=== PATIENT | female | born 1940 | race Caucasian/White ===

== ENCOUNTER 2018-02-05 09:54 | Outpatient (CLI) | payer OTHER ==
[~2018-02-05 09:54] MED LIST: BARIUM SULFATE 340 ML SUSP.RECON***PROCEDURE AREA ONLY**DONT ENTER PO ONE; SIMETHICONE/SOD BICARB/CIT AC PACKET PO ONE; diatrozoate meglu/diatrozoate sod (37% iodine) 120ML oral solution ONE
== END 2018-02-05 23:59 | disposition home or self-care (01) ==
LOC: RAD 09:54
PROVIDERS: ATTEND Specialist
DX: K57.10 Diverticulosis of small intestine without perforation or abscess without bleeding (principal); K63.89 Other specified diseases of intestine; K21.9 Gastro-esophageal reflux disease without esophagitis
CPT/HCPCS: 74241; Q9963

== ENCOUNTER 2019-01-25 08:03 | Day surgery (SDC) | payer MEDICARE ==
[2019-01-25] VITALS (13 sets, daily range): BP systolic 129–236; BP diastolic 72–126
[~2019-01-25] VITALS: Ht 139.7 cm; Wt 56.0 kg
[2019-01-25] MEDS ORDERED: normal saline 1000ml 1,000 ML IV PRN (08:40)
[2019-01-25] MEDS ORDERED: LORazepam 0.5 MG tablet PO PRN (08:55)
[2019-01-25 09:37] LABS: BASOPHILS # (AUTO) 0.1 X10'3 (0-0.2); BASOPHILS % (AUTO) 0.8 % (0-1); EOSINOPHILS # (AUTO) 0.2 X10'3 (0-0.9); EOSINOPHILS % (AUTO) 2.2 % (0-6); HEMATOCRIT 45.2 % (35.0-45.0); HEMOGLOBIN 15.2 g/dl (12.0-16.0); LYMPHOCYTES % (AUTO) 29.6 % (21-51); MEAN CORPUSCULAR HEMOGLOBIN 29.2 PG (27.0-31.0); MEAN CORPUSCULAR HGB CONC 33.6 g/dL (33.0-36.5); MEAN CORPUSCULAR VOLUME 87.1 FL (78-98); MEAN PLATELET VOLUME 7.5 FL (7.4-10.4); MONOCYTES # (AUTO) 0.6 X10'3 (0-0.9); MONOCYTES % (AUTO) 5.4 % (2-12); NEUTROPHILS # (AUTO) 6.3 X10'3 (1.8-7.7); PLATELET COUNT 392 X10'3 (140-440); RED BLOOD COUNT 5.19 X10'6 (4.20-5.60); RED CELL DISTRIBUTION WIDTH 14.3 % (11.5-14.5); WHITE BLOOD COUNT 10.2 X10'3 (4.5-11.0)
[2019-01-25 09:49] LABS: ALBUMIN 4.1 G/DL (3.4-5.0); ANION GAP 10 (8-16); BLOOD UREA NITROGEN 15 MG/DL (7-18); BUN/CREATININE RATIO 17.4 (6.6-38.0); CALCIUM 10.1 MG/DL (8.5-10.1); CHLORIDE 102 MMOL/L (99-107); CREATININE 0.86 MG/DL (0.40-0.90); GLUCOSE 128 MG/DL (70-104); POTASSIUM 4.1 MMOL/L (3.5-5.1); SODIUM 139 MMOL/L (135-145); TOTAL CARBON DIOXIDE 26.9 MMOL/L (24-32); eGFR 64 ML/MIN
[2019-01-25] MEDS ORDERED: LIDOcaine 1%/PF 5ML 10 MG/ML VIAL ONE (10:21)
[2019-01-25] MEDS ORDERED: midazolam 2 mg/2 ml injection IV PRN (10:25)
[2019-01-25] MEDS ORDERED: LIDOcaine 1%/PF 5ML 10 MG/ML VIAL SQ ONE (10:25)
[2019-01-25] MEDS ORDERED: fentaNYL/PF 50MCG/1 ML 2ML syringe IV PRN (10:25)
[2019-01-25] MEDS ORDERED: midazolam 2 mg/2 ml injection ONE (10:34)
[2019-01-25] MEDS ORDERED: fentaNYL/PF 50MCG/1 ML 2ML syringe ONE ×2 (10:34→10:49)
[2019-01-25] MEDS ORDERED: metoprolol tartrate 1mg/ml inj IV ONE ×2 (10:53→11:00)
== END 2019-01-25 13:00 | disposition home or self-care (01) ==
LOC: SSTAY O 08:03
PROVIDERS: ATTEND Radiology Diagnostic Radiology
DX: C48.0 Malignant neoplasm of retroperitoneum (principal); Z90.710 Acquired absence of both cervix and uterus; Z98.890 Other specified postprocedural states; Z88.6 Allergy status to analgesic agent; Z88.8 Allergy status to other drugs, medicaments and biological substances; Z85.07 Personal history of malignant neoplasm of pancreas
CPT/HCPCS: 36415; 49180; 77012; 80048; 85025; 85610; 88341; 88342; J2001; J2250; J3010; J7030; 88305; 99152; 99153; J3490

== ENCOUNTER 2020-11-24 22:11 | Emergency (ER) | payer BC, MEDICARE ==
[~2020-11-24] VITALS: Ht 139.7 cm; Wt 48.6 kg
[2020-11-24 22:13] VITALS: BP 150/93
--- NOTE | 2020-11-24 23:20 | NUR ---
Pt c/o nausea, vomiting x3 days, constipation, B/L LE edema, Right sided abdominal pain.
[2020-11-25] MEDS ORDERED: metoclopramide 5 mg/ml inj IV ONE
[2020-11-25] MEDS ORDERED: normal saline 1000ML IV soln IVB ONE
[2020-11-25] MEDS ORDERED: pantoprazole 40 MG vial IV ONE
[2020-11-25 01:29] LABS: EOSINOPHILS # (AUTO) 0.1 X10'3 (0-0.9); HEMOGLOBIN 11.5 g/dl (12.0-16.0); RED CELL DISTRIBUTION WIDTH 15.6 % (11.5-14.5); WHITE BLOOD COUNT 8.6 X10'3 (4.5-11.0)
[2020-11-25 01:31] LABS: BASOPHILS % (AUTO) 0.3 % (0-1); EOSINOPHILS % (AUTO) 1.1 % (0-6); HEMATOCRIT 33.6 % (35.0-45.0); LYMPHOCYTES # (AUTO) 1.2 X10'3 (1.1-4.8); MEAN CORPUSCULAR HEMOGLOBIN 29.8 PG (27.0-31.0); MEAN CORPUSCULAR HGB CONC 34.2 g/dL (33.0-36.5); MEAN CORPUSCULAR VOLUME 87.1 FL (78-98); MEAN PLATELET VOLUME 7.3 FL (7.4-10.4); MONOCYTES # (AUTO) 0.7 X10'3 (0-0.9); MONOCYTES % (AUTO) 8.6 % (2-12); NEUTROPHILS # (AUTO) 6.5 X10'3 (1.8-7.7); PLATELET COUNT 376 X10'3 (140-440); RED BLOOD COUNT 3.86 X10'6 (4.20-5.60)
[2020-11-25 01:38] LABS: ALANINE AMINOTRANSFERASE 200 U/L (12-78); ALBUMIN 2.2 G/DL (3.4-5.0); ALBUMIN/GLOBULIN RATIO 0.6 (1.1-1.5); ALKALINE PHOSPHATASE 869 IU/L (46-116); ANION GAP 9 (8-16); ASPARTATE AMINO TRANSFERASE 109 U/L (10-37); BILIRUBIN,TOTAL 1.9 MG/DL (0.1-1.0); BLOOD UREA NITROGEN 14 MG/DL (7-18); CALCIUM 8.8 MG/DL (8.5-10.1); CHLORIDE 96 MMOL/L (99-107); GLUCOSE 105 MG/DL (70-104); LIPASE < 50 U/L (73-393); POTASSIUM 3.8 MMOL/L (3.5-5.1); SODIUM 133 MMOL/L (135-145); TOTAL CARBON DIOXIDE 28.1 MMOL/L (24-32); TOTAL PROTEIN 5.8 G/DL (6.4-8.2); eGFR > 90 ML/MIN
[2020-11-25 01:54] LABS: CLARITY,URINE SLIGHTLY CLOUDY (Clear); COLOR,URINE YELLOW (Yellow); GLUCOSE, URINE NEGATIVE (Neg); KETONES,URINE >=80 mg/dl (Neg); LEUKOCYTE ESTERASE ,URINE SMALL (Neg); NITRITES, URINE NEGATIVE (Neg); OCCULT BLOOD,URINE SMALL (Neg); PROTEIN,URINE TRACE mg/dl (Neg); UROBILINOGEN,URINE 0.2 E.U/dL (0.2-1.0)
[2020-11-25 02:03] LABS: UA COLLECTION TYPE NON-SPECIFIED
[2020-11-25 02:04] LABS: BACTERIA,URINE FEW /HPF (Neg); RBC,URINE 0-2 /HPF (0-2); SQUAMOUS EPITHELIAL CELL,UR FEW /LPF (FEW); WBC CLUMPS,URINE FEW /HPF (NEGATIVE); WBC,URINE 50-100 /HPF (0-4)
[2020-11-25] MEDS ORDERED: METO-292 PO (02:41)
[2020-11-25] MEDS ORDERED: POLY17PO10 PO (02:41)
[2020-11-25] MEDS ORDERED: DRON2.5C18 PO ×2 (02:41→02:46)
[2020-11-25] MEDS ORDERED: heparin sodium, porcine/PF 100unit/ml 5ML syringe IV STA (02:54)
[2020-11-25] MEDS ORDERED: diazepam inj 5 MG/ML inj. IV ONE (03:20)
--- NOTE | 2020-11-25 04:07 | NUR ---
Pt is a cancer patient and had an implanted port. Port accessed for labs and medication administration using sterile technique. At time of discharge, port was heparin locked and access removed with no complications; a bandaid was placed over the site. Pt skin very sensitive and intolerant of blood pressure cuff. Pt declined vital signs due to discomfort. Pt visually assessed frequently.
== END 2020-11-25 05:05 | disposition home or self-care (01) ==
LOC: ER 22:11
DX: R10.13 Epigastric pain (principal); R11.2 Nausea with vomiting, unspecified; R53.81 Other malaise; G89.29 Other chronic pain; R53.1 Weakness; R60.0 Localized edema; Z88.8 Allergy status to other drugs, medicaments and biological substances; Z79.899 Other long term (current) drug therapy
CPT/HCPCS: 36415; 74022; 80053; 81001; 83605; 83690; 84484; 85025; 87040; 87077; 87088; 87186; 93005; 96361; 96374; 96375; 99285; C9113; J1642; J2765; J3360; J7030